=== PATIENT | male | born 1955 | race African-American/Black ===

== ENCOUNTER 2022-04-20 10:54 | Emergency (ER) | payer OTHER ==
[2022-04-20 11:16] VITALS: BP 139/84; PULSE 86; RESP 18; TEMP 98.4; BMI 23.6
[2022-04-20] MEDS ORDERED: ACETAMINOPHEN 500 MG TABLET (FP) PO ONE (14:47)
[2022-04-20] MEDS ORDERED: ACETAMINOPHEN 500 MG TABLET (FP) ONE (14:56)
== END 2022-04-20 15:24 | disposition home or self-care (01) ==
LOC: JERFT 10:54
DX: M79.604 Pain in right leg (principal)
CPT/HCPCS: 93971-TC; 99283-25

== ENCOUNTER 2022-10-12 19:42 | Inpatient (IN) | payer OTHER ==
[2022-10-12 19:53] VITALS: BMI 20.3
[2022-10-12 21:00] LABS: BASO % 0.5 % (0-2.0); EOS % 0.8 % (0-4.5); HEMATOCRIT 29.6 % (35.4-49); HEMOGLOBIN 9.7 GM/dL (11.7-16.9); LYMPH % 9.9 % (8-40); MCH 31.2 pg (25.7-33.7); MCHC 32.9 g/dl (32.0-35.9); MEAN CELL VOLUME 94.8 fl (80-96); MEAN PLT VOLUME 6.6 fl (7.5-11.1); MONO % 6.8 % (3.8-10.2); PLATELET COUNT 597 10^3/uL (134-434); RBC 3.12 M/mm3 (4.00-5.60); RDW 14.9 % (11.9-15.9); WHITE BLOOD COUNT 9.7 K/mm3 (4.0-10.0)
[2022-10-12 21:07] LABS: INR 1.09 (0.83-1.09); PROTHROMBIN TIME (PATIENT) 12.6 SEC (9.7-13.0)
[2022-10-12 21:10] LABS: ACTIVATED PTT 27.8 SECONDS (25.2-36.5)
[2022-10-12 21:20] LABS: POTASSIUM 4.6 mmol/L (3.5-5.1)
[2022-10-12 21:22] LABS: CALCIUM 9.4 mg/dL (8.5-10.1)
[2022-10-12 21:23] LABS: ALBUMIN 2.6 g/dl (3.4-5.0); BLOOD UREA NITROGEN 15.9 mg/dL (7-18)
[2022-10-12 21:25] LABS: CREATININE 1.9 mg/dL (0.55-1.3)
[2022-10-12 21:28] LABS: BILIRUBIN,TOTAL 0.4 mg/dL (0.2-1); LACTIC ACID 3.3 mmol/L (0.4-2.0); TOT PROT 6.6 g/dl (6.4-8.2)
[2022-10-12 21:31] LABS: N-TERMINAL BNP 36.1 pg/ml (5-125)
[2022-10-12] MEDS ORDERED: LACTATED RINGERS SOLUTION 1000 ML INFUS.BAG IV ONE (21:31)
[2022-10-12] MEDS ORDERED: SODIUM CHLORIDE 0.9% 1000 ML INFUS.BAG IV ONE (22:07)
[2022-10-13 07:18] LABS: BASO % 0.7 % (0-2.0); EOS % 2.1 % (0-4.5); HEMATOCRIT 27.1 % (35.4-49); HEMOGLOBIN 9.2 GM/dL (11.7-16.9); MCH 32.4 pg (25.7-33.7); MCHC 33.8 g/dl (32.0-35.9); MEAN CELL VOLUME 95.9 fl (80-96); MEAN PLT VOLUME 6.8 fl (7.5-11.1); NEUT % 68.2 % (42.8-82.8); PLATELET COUNT 583 10^3/uL (134-434); RBC 2.83 M/mm3 (4.00-5.60); RDW 14.6 % (11.9-15.9); WHITE BLOOD COUNT 8.9 K/mm3 (4.0-10.0)
[2022-10-13 07:39] LABS: POTASSIUM 4.5 mmol/L (3.5-5.1)
[2022-10-13 07:44] LABS: CALCIUM 8.6 mg/dL (8.5-10.1)
[2022-10-13 07:45] LABS: ALBUMIN 2.4 g/dl (3.4-5.0); MAGNESIUM 1.8 mg/dL (1.8-2.4)
[2022-10-13 07:47] LABS: CREATININE 1.4 mg/dL (0.55-1.3)
[2022-10-13 07:48] LABS: BILIRUBIN,TOTAL 0.3 mg/dL (0.2-1); TOT PROT 5.9 g/dl (6.4-8.2)
[2022-10-13] MEDS: LEVOTHYROXINE NA 125 MCG TABLET (FP) PO SCH (09:19)
[2022-10-13] MEDS: GABAPENTIN 100 MG CAPSULE PO SCH ×3 (09:19→21:50)
[2022-10-13] MEDS: LOSARTAN POTASSIUM 50 MG TABLET PO SCH (10:49)
[2022-10-13] MEDS: CLOPIDOGREL BISULFATE 75 MG TABLET (FP) PO SCH (10:49)
[2022-10-13] MEDS: PIPERACILLIN/TAZOB 3.375 GM 3.375 GM in DEXTROSE 5%-WATER - 50 ML IVPB SCH ×3 (10:49→17:59)
[2022-10-13] MEDS: ASPIRIN COATED 81 MG TABLET.EC PO SCH (10:49)
[2022-10-13] MEDS: amLODIPine BESYLATE 10 MG TABLET (FP) PO SCH (10:49)
[2022-10-13] MEDS: FAMOTIDINE 20 MG TABLET PO SCH ×2 (10:49→21:49)
[2022-10-13] MEDS: BICTEGRAV/EMTRICIT/TENOFOV (BIKTARVY) 50-200-25 MG TABLET PO SCH (10:50)
[2022-10-13] MEDS ORDERED: INSULIN (NOVOLOG) ASPART 100 UNITS/ML 10ML VIAL ONE ×2 (11:55→21:53)
[2022-10-13] MEDS: INSULIN SLIDING SCALE (NOVOLOG) 1 VIAL SQ SCH ×3 (11:57→21:54)
[2022-10-13] MEDS: LACTOBACILLUS ACIDOPHILUS 1 TABLET PO SCH (13:38)
[2022-10-13] MEDS ORDERED: PIPERACILLIN/TAZOB 3.375 GM 3.375 GM in DEXTROSE 5%-WATER - 50 ML IVPB SCH (18:00)
[2022-10-13] MEDS: ATORVASTATIN CA 40 MG TABLET (FP) PO SCH (21:49)
[2022-10-13] MEDS: LATANOPROST 0.005% OPHTH SOLN 2.5ML BOTTLE OU SCH (21:50)
[2022-10-14] MEDS: PIPERACILLIN/TAZOB 3.375 GM 3.375 GM in DEXTROSE 5%-WATER - 50 ML IVPB SCH ×3 (02:12→18:26)
[2022-10-14] MEDS ORDERED: INSULIN (NOVOLOG) ASPART 100 UNITS/ML 10ML VIAL ONE ×3 (05:44→22:01)
[2022-10-14] MEDS: GABAPENTIN 100 MG CAPSULE PO SCH ×3 (06:04→22:09)
[2022-10-14] MEDS: LEVOTHYROXINE NA 125 MCG TABLET (FP) PO SCH (06:04)
[2022-10-14] MEDS: INSULIN SLIDING SCALE (NOVOLOG) 1 VIAL SQ SCH ×4 (06:04→22:10)
[2022-10-14] MEDS: FAMOTIDINE 20 MG TABLET PO SCH ×2 (10:11→22:09)
[2022-10-14] MEDS: LOSARTAN POTASSIUM 50 MG TABLET PO SCH (10:11)
[2022-10-14] MEDS: BICTEGRAV/EMTRICIT/TENOFOV (BIKTARVY) 50-200-25 MG TABLET PO SCH (10:11)
[2022-10-14] MEDS: ASPIRIN COATED 81 MG TABLET.EC PO SCH (10:11)
[2022-10-14] MEDS: LACTOBACILLUS ACIDOPHILUS 1 TABLET PO SCH (10:11)
[2022-10-14] MEDS: CLOPIDOGREL BISULFATE 75 MG TABLET (FP) PO SCH (10:12)
[2022-10-14] MEDS: amLODIPine BESYLATE 10 MG TABLET (FP) PO SCH (10:12)
[2022-10-14] MEDS ORDERED: INSULIN (LEVEMIR) 100 UNITS/ML UNITS SQ SCH (22:00)
[2022-10-14] MEDS: ATORVASTATIN CA 40 MG TABLET (FP) PO SCH (22:09)
[2022-10-14] MEDS: LATANOPROST 0.005% OPHTH SOLN 2.5ML BOTTLE OU SCH (22:11)
[2022-10-15] MEDS: PIPERACILLIN/TAZOB 3.375 GM 3.375 GM in DEXTROSE 5%-WATER - 50 ML IVPB SCH ×3 (01:40→17:45)
[2022-10-15] MEDS: GABAPENTIN 100 MG CAPSULE PO SCH ×3 (06:11→21:52)
[2022-10-15] MEDS: LEVOTHYROXINE NA 125 MCG TABLET (FP) PO SCH (06:11)
[2022-10-15] MEDS: INSULIN SLIDING SCALE (NOVOLOG) 1 VIAL SQ SCH ×4 (06:11→22:15)
[2022-10-15] MEDS ORDERED: INSULIN (NOVOLOG) ASPART 100 UNITS/ML 10ML VIAL ONE ×4 (06:11→22:00)
[2022-10-15 09:06] VITALS: RESP 18
[2022-10-15] MEDS: BICTEGRAV/EMTRICIT/TENOFOV (BIKTARVY) 50-200-25 MG TABLET PO SCH (09:31)
[2022-10-15] MEDS: amLODIPine BESYLATE 10 MG TABLET (FP) PO SCH (09:32)
[2022-10-15] MEDS: LOSARTAN POTASSIUM 50 MG TABLET PO SCH (09:32)
[2022-10-15] MEDS: LACTOBACILLUS ACIDOPHILUS 1 TABLET PO SCH (09:32)
[2022-10-15] MEDS: ASPIRIN COATED 81 MG TABLET.EC PO SCH (09:32)
[2022-10-15] MEDS: FAMOTIDINE 20 MG TABLET PO SCH ×2 (09:32→21:52)
[2022-10-15] MEDS: CLOPIDOGREL BISULFATE 75 MG TABLET (FP) PO SCH (09:32)
[2022-10-15] MEDS: ATORVASTATIN CA 40 MG TABLET (FP) PO SCH (21:52)
[2022-10-15] MEDS ORDERED: INSULIN (LEVEMIR) 100 UNITS/ML UNITS SQ SCH (22:00)
[2022-10-15] MEDS: LATANOPROST 0.005% OPHTH SOLN 2.5ML BOTTLE OU SCH (22:17)
[2022-10-16] MEDS: PIPERACILLIN/TAZOB 3.375 GM 3.375 GM in DEXTROSE 5%-WATER - 50 ML IVPB SCH ×2 (02:30→10:06)
[2022-10-16] MEDS: LEVOTHYROXINE NA 125 MCG TABLET (FP) PO SCH (06:08)
[2022-10-16] MEDS: GABAPENTIN 100 MG CAPSULE PO SCH ×2 (06:08→14:26)
[2022-10-16] MEDS ORDERED: INSULIN (NOVOLOG) ASPART 100 UNITS/ML 10ML VIAL ONE ×3 (06:45→16:44)
[2022-10-16] MEDS: INSULIN SLIDING SCALE (NOVOLOG) 1 VIAL SQ SCH ×3 (06:47→16:46)
[2022-10-16] MEDS: ASPIRIN COATED 81 MG TABLET.EC PO SCH (10:08)
[2022-10-16] MEDS: LOSARTAN POTASSIUM 50 MG TABLET PO SCH (10:08)
[2022-10-16] MEDS: BICTEGRAV/EMTRICIT/TENOFOV (BIKTARVY) 50-200-25 MG TABLET PO SCH (10:08)
[2022-10-16] MEDS: FAMOTIDINE 20 MG TABLET PO SCH (10:08)
[2022-10-16] MEDS: CLOPIDOGREL BISULFATE 75 MG TABLET (FP) PO SCH (10:08)
[2022-10-16] MEDS: amLODIPine BESYLATE 10 MG TABLET (FP) PO SCH (10:08)
[2022-10-16] MEDS: LACTOBACILLUS ACIDOPHILUS 1 TABLET PO SCH (10:08)
[2022-10-16 17:23] VITALS: BP 103/57; PULSE 83; TEMP 98.9
== END 2022-10-16 17:41 | DRG 312 ==
LOC: JER 19:42 → JERBED 23:19 → J4W 10-13 03:10 → OBSVTOIN 10-14 19:48
PROVIDERS: ADMIT Internal Medicine; ATTEND Internal Medicine
PROC: 02HV33Z Insertion of Infusion Device into Superior Vena Cava, Percutaneous Approach (ICD-10-PCS; principal; 2022-10-16)
PROC: B548ZZA Ultrasonography of Superior Vena Cava, Guidance (ICD-10-PCS; 2022-10-16)
DX: R55 Syncope and collapse (principal); E11.52 Type 2 diabetes mellitus with diabetic peripheral angiopathy with gangrene; B20 Human immunodeficiency virus [HIV] disease; R64 Cachexia; Z68.1 Body mass index [BMI] 19.9 or less, adult; N18.9 Chronic kidney disease, unspecified; E86.0 Dehydration; I12.9 Hypertensive chronic kidney disease with stage 1 through stage 4 chronic kidney disease, or unspecified chronic kidney disease
CPT/HCPCS: 36415; 36569; 70450-TC; 71045-TC-FY; 80053; 82962; 83605; 83735; 83880; 84443; 84484; 85025; 85379; 85610; 85730; 86850; 86900; 86901; 87040; 87635; 93005; 93010; 93306-TC; 93970-TC; 99285-25; G0378